=== PATIENT | female | born 1960 | race Caucasian/White ===

== ENCOUNTER 2018-02-13 06:24 | Day surgery (SDC) | payer BC ==
[2018-02-11 12:34] VITALS: BMI 29.7
[~2018-02-13 06:24] MED LIST: BUPIVACAINE HCL/PF (5 MG/ML) 30 ML VIAL IJ ONE
[2018-02-13] MEDS ORDERED: LIDOCAINE HCL/PF 2% SDV 5ML VIAL ONE (07:54)
[2018-02-13] MEDS ORDERED: ROCURONIUM BROMIDE 50 MG/5 ML VIAL ONE (07:54)
[2018-02-13] MEDS ORDERED: fentaNYL CITRATE 250 MCG/5 ML VIAL ONE (07:54)
[2018-02-13] MEDS ORDERED: ceFAZolin SODIUM 1 GM VIAL ONE (07:54)
[2018-02-13] MEDS ORDERED: PROPOFOL 20 ML ONE (07:54)
[2018-02-13] MEDS ORDERED: MIDAZOLAM HCL 2 MG/2 ML SINGLE DOSE VIAL ONE (07:55)
--- NOTE | 2018-02-13 07:55 | HP ---
History & Physical Update - History History: No Change - Physical Physical: No Change - Assessment Assessment: No Change - Plan Plan: No Change (no change since visit with PCP on 01/29/08)
[2018-02-13] MEDS ORDERED: IBUPROFEN 800 MG/8 ML IJ IVPB PRN (08:09)
[2018-02-13] MEDS ORDERED: ONDANSETRON 4 MG/2 ML VIAL IVPUSH PRN (08:09)
[2018-02-13] MEDS ORDERED: oxyCODONE HCL 5 MG TABLET PO PRN ×3 (08:09→10:11)
[2018-02-13] MEDS ORDERED: LACTATED RINGERS SOLUTION 1,000 ML IV SCH (08:15)
[2018-02-13] MEDS ORDERED: ceFAZolin SODIUM 1 GM VIAL IVPB ONE (08:25)
[2018-02-13] MEDS ORDERED: ONDANSETRON 4 MG/2 ML VIAL ONE (08:48)
[2018-02-13] MEDS ORDERED: DEXAMETHASONE SOD PHOSPHATE 4 MG/1 ML VIAL ONE (08:48)
[2018-02-13] MEDS ORDERED: GLYCOPYRROLATE 0.2 MG/1 ML VIAL ONE (08:53)
[2018-02-13] MEDS ORDERED: BUPIVACAINE HCL/PF (5 MG/ML) 30 ML VIAL IJ ONE (08:58)
[2018-02-13] MEDS ORDERED: NEOSTIGMINE METHYLSULFATE 0.5 MG/ML - 10 ML MDV ONE (09:09)
--- NOTE | 2018-02-13 09:26 | OP ---
Operative Note - Note: Operative Date: 02/13/18 Pre-Operative Diagnosis: umbilical hernia Operation: open repair of umbilical hernia with mesh Findings: small umbilical hernia containing fat Post-Operative Diagnosis: Same as Pre-op Surgeon: Eleazar Gonzalez Anesthesia: General Specimens Removed: none Estimated Blood Loss (mls): 5 Operative Report Dictated: Yes
[2018-02-13] MEDS ORDERED: LISINOPRIL 20 MG TABLET (FP) PO SCH ×2 (10:00→10:21)
[2018-02-13] MEDS ORDERED: LACTATED RINGERS SOLUTION 1,000 ML/1,000 ML INFUS.BAG IV SCH (10:15)
[2018-02-13] MEDS ORDERED: IBUPROFEN 800 MG/8 ML IJ IVPB ONE (10:21)
--- NOTE | 2018-02-13 13:13 | SURG ---
Surgery Metal Fabricator Note Metal Fabricator: Elsy Marti PA-C Diagnosis: umbilical hernia Procedure: open repair of umbilical hernia with mesh I was present for the entirety of the operative procedure. For further detail, please refer to operative report. Visit type - Case Type Case Type: Scheduled - Emergency Emergency Visit: No - New patient This patient is new to me today: Yes Date on this admission: 02/13/18
--- NOTE | 2018-02-13 13:33 | OP ---
DATE OF OPERATION: 02/13/2018 PREOPERATIVE DIAGNOSIS: Umbilical hernia. POSTOPERATIVE DIAGNOSIS: Umbilical hernia. PROCEDURE: Open repair of umbilical hernia. SURGEON: Eleazar Gonzalez MD EMERY WHEEL WORKER: Elsy Marti ANESTHESIA: General. ANESTHESIOLOGIST: JONELLE Anderson Patient tolerated the procedure well. INDICATIONS: This is a 57-year-old female who presents with a painful mass in the umbilicus. On physical exam it was confirmed to an umbilical hernia and she was referred for surgical evaluation. Risks, benefits and options were discussed with the patient and she agreed to proceed with open repair given the fact that it is a small hernia. PROCEDURE: In the operating room, she was positioned in the supine position and after induction of general anesthesia, she was prepped and draped in the usual sterile fashion. The operation was begun with a periumbilical incision approximately 2 cm, which was carried through the skin and subcutaneous tissues with the scalpel. Bleeding was controlled with cautery and the hernia sac was identified and it was dissected off the umbilical stalk carefully to avoid injury to the skin. Dissection was done all the way to the fascial layers where the fascia was clearly identified. The sac was able to be reduced completely into the preperitoneal space and the repair was done by approximating the fascia with 2-0 Prolene sutures in interrupted fashion. A total of 5 sutures were used. A ProGrip mesh of 5 x 4 cm was then positioned to cover the defect, which was approximately 1.5 cm in size. The ProGrip mesh was then secured to the umbilical stalk with a 3-0 Vicryl suture, which was reattached to the fascia and the subcutaneous tissues were approximated with 3-0 Vicryl. The skin was closed with 4-0 Monocryl. Dermabond was applied and the patient was returned to the recovery room awake, alert, in stable condition. She tolerated the procedure well. Anurag [id number]
[2018-02-13] MEDS ORDERED: FLU VACCINE QUAD 60 MCG/0.5 ML (MDV 18-19) IM ONE (14:30)
[2018-02-13] MEDS: ACETAMINOPHEN 325 MG TABLET (FP) PO PRN (15:45)
[2018-02-13] MEDS: BENZOCAINE/MENTH/CETYLPYRD CL 1 EACH LOZENGE MM PRN ×2 (16:12→17:29)
--- NOTE | 2018-02-13 20:09 | CON.ENT ---
Consult Consult Specialty:: ENT Referred by:: EVELIO Domingo Reason for Consultation:: enlarged lingual tonsils, difficult intubation - History of Present Illness Chief Complaint: sore throat History of Present Illness: 57 yo F admitted today for outpatient umbilical hernia repair by report, difficult intubation, lingual tonsil hypertrophy noted, surgery completed and pt extubated, c/o sore throat, family member states pt had trouble speaking and neck was visibly swollen, was not able to eat or drink. over course of day this has improved, able to drink some liquids, has voided, neck swelling now gone, voice improved. Pt has no significant history of throat trouble, had tonsillectomy when young, no significant throat problems as adult, no recent URI voice clear, some snoring, intermittent, no witnessed apnea during sleep. - History Source History Provided By: Patient, Family Member, Medical Record - Past Medical History Gastrointestinal: Yes: Other (umbilical hernia) - Alcohol/Substance Use Hx Alcohol Use: No - Smoking History Smoking history: Never smoked Home Medications - Allergies Allergies/Adverse Reactions: Allergies Allergy/AdvReac Type Severity Reaction Status Date / Time No Known Allergies Allergy Verified 02/11/18 12:34 - Home Medications Home Medications: Ambulatory Orders Atorvastatin Ca [Lipitor] 40 mg PO DAILY 02/11/18 Benazepril HCl 40 mg PO DAILY 02/11/18 Docusate Sodium [Colace] 100 mg PO BID #30 capsule 02/14/18 oxyCODONE HCL [Roxicodone -] 5 mg PO Q4H PRN 7 Days #20 tablet MDD 5 02/14/18 Review of Systems - Review of Systems Respiratory: reports: Snoring Physical Exam-ENT Vital Signs: Vital Signs Temperature 97.8 F 02/13/18 12:55 Pulse Rate 58 L 02/13/18 12:55 Respiratory Rate 20 02/13/18 12:55 Blood Pressure 144/85 02/13/18 12:55 O2 Sat by Pulse Oximetry (%) 95 02/13/18 12:55 Constitutional: Yes: Well Nourished, No Distress, Calm Head: Yes: WNL Face: Yes: WNL Eyes: Yes: WNL Nose: Yes: Septum Deviated Nasal Passage: Yes: WNL Oral/Pharynx: Yes: Other (tonsils absent, no infection, mild erythema right anterior tonsil pillar and left posterior pharyngeal wall, teeth, tongue WNL. Flexible laryngoscopy performed: nasopharynx clear, base of tonngue ++severe lingual tonsil hypertrophy, diffuse, symmetric, valleculae obliterated, obscures edge of epiglottis, significant AP airway narrowing, endolarynx seen, no lesions, vocal cords mobile symmetric, minimal hemorrhage right anterior true vocal cord, voice clear and strong, no stridor or respiratory distress, arytenoids mild edema , no pooling in pyriform sinuses) Outer Ear: Yes: WNL Ear Canal: Yes: Cerumen Tympanic Membrane: Yes: WNL Neck: Yes: WNL, Other (no tenderness, no mass, no subcutaneous emphysema) Respiratory: Yes: WNL Problem List - Problems (1) Unexpected difficult intubation Assessment/Plan: pt had difficult intubation today for umbilical hernia repair. throat was sore , now improved reported neck swelling, throat pain and voice change have all improved exam shows mild contusion of oropharynx. significant lingual tonsil hypertrophy present. minimal hemorrhage right anterior true vocal cord. OK to discharge home from ENT perspective when meets discharge criteria. pt and family should advise other providers of difficult intubation for any future elective surgeries. diet as tolerated to office after discharge for further evaluation of lingual tonsil hypertrophy Code(s): T88.4XXA - FAILED OR DIFFICULT INTUBATION, INITIAL ENCOUNTER (2) Lingual tonsil hypertrophy Assessment/Plan: severe lingual tonsil hypertrophy with difficult intubation, narrowed airway this is symmetric, pt is s/p adenotonsillectomy as child the vallecula is not visible on flexible laryngoscopy, and lingual tonsil tissue obscures the free superior edge of the epiglottis. recheck in office, may require further evaluation including outpatient biopsy depending on clinical course and examination. Thank you for consultation, Bridger Johansen MD FACS Code(s): J35.1 - HYPERTROPHY OF TONSILS
[2018-02-13] MEDS ORDERED: ATORVASTATIN CA 40 MG TABLET (FP) PO SCH (22:00)
[2018-02-14] MEDS: ACETAMINOPHEN 325 MG TABLET (FP) PO PRN ×3 (01:40→17:04)
--- NOTE | 2018-02-14 08:42 | PN ---
Progress Note (short form) - Note Progress Note: POD 1 Pt seen and examined. States she had a rough night due to her throat discomfort and incisional pain. Tolerating PO, has been oob without issue. Voiding without issue. Denies cp, sob, n/v/d, calf pain, edema. Last Vital Signs Temp Pulse Resp BP Pulse Ox 98.6 F 64 20 124/70 95 02/14/18 06:20 02/14/18 06:20 02/14/18 06:20 02/14/18 06:20 02/13/18 20:32 Vital Signs Temp 98.6 F 02/14/18 06:20 Pulse 64 02/14/18 06:20 Resp 20 02/14/18 06:20 BP 124/70 02/14/18 06:20 Pulse Ox 95 02/13/18 20:32 Intake & Output 02/13/18 02/13/18 02/14/18 11:59 23:59 11:59 Intake Total 1000 50 Output Total 5 0 Balance 995 50 Weight 168 lb Intake: IV 1000 50 Output: Urine 0 Estimated Blood Loss 5 Other: Voiding Method Toilet Height 5 ft 3 in Body Mass Index (BMI) 29.7 Weight Measurement Method Stated by Patient Gen: awake, alert, nad Resp: cta b/l CV: rrr, s1s2 Abdomen soft, nt/nd, incision c/d/i no erythema or drainage no palpable hematoma. Ext: soft, nontender, venodynes in place and on A/P: 57 y/o F w/ PMHx obesity, htn, hld, umbilical hernia, now POD 1, s/p open repair with mesh. Pt evaluated by ENT for enlarged lingual tonsils, difficult intubation, planned for outpt follow up. Some incisional pain and throat pain. -Pain control with Tylenol 650mg q6hrs prn, Roxicodone 5/10mg q4hrs prn, cepacol loenges -oob ad gracy -Regular diet -Incentive spirometry -B/L scds -plan for d/c later today
[2018-02-14 14:54] VITALS: PULSE 51; TEMP 98.3
[2018-02-14 17:03] VITALS: BP 145/74
== END 2018-02-14 17:43 | disposition home or self-care (01) ==
LOC: JASUSAT 06:24 → JASU-SURG 06:24 → J6S 12:51 → JASUSAT 02-14 17:43
PROVIDERS: ATTEND Surgery
PROC: 0WUF0JZ Supplement Abdominal Wall with Synthetic Substitute, Open Approach (ICD-10-PCS; principal; 2018-02-13 08:00)
DX: K42.9 Umbilical hernia without obstruction or gangrene (principal)
CPT/HCPCS: 90688; 94760